=== PATIENT | male | born 1960 | race Caucasian/White ===

== ENCOUNTER → 2021-04-11 | Outpatient (CLI) | payer SELFPAY ==
[~2021-04-11] MED LIST: ISOVUE-370 76% 100ML VIAL As Ordered ONE
--- NOTE | 2021-04-11 12:19 | REPVR ---
PROCEDURE INFORMATION: Exam: CT Neck With Contrast Exam date and time: 04/11/2021 11:40 AM Age: 60 years old Clinical indication: Pain; Other: Lower lip; Additional info: Malig neoplasm lower lip TECHNIQUE: Imaging protocol: Computed tomography images of the neck with contrast. Radiation optimization: All CT scans at this facility use at least one of these dose optimization techniques: automated exposure control; mA and/or kV adjustment per patient size (includes targeted exams where dose is matched to clinical indication); or iterative reconstruction. Contrast material: ISOVUE 370; Contrast volume: 75 ml; Contrast route: INTRAVENOUS (IV); COMPARISON: No relevant prior studies available. FINDINGS: Paranasal sinuses: Mild mucosal thickening of the ethmoidal air cells. Nasopharynx: Unremarkable. Oropharynx: Unremarkable. No significant tonsillar enlargement. Hypopharynx: Unremarkable. Larynx: Unremarkable. Normal epiglottis. Retropharyngeal space: Unremarkable. Submandibular/Parotid glands: Normal. Glands are normal in size. Thyroid: Normal. No enlarged or calcified nodules. Lymph nodes: Prominent bilateral cervical chain lymph nodes measuring upto 1 cm. These are not pathologically enlarged by CT criteria. Trachea: Visualized trachea is unremarkable. Lungs: Unremarkable as visualized. Bones/joints: Posterior disc osteophy formation at C3/C4 causing mild to moderate central spinal canal stenosis. Posterior disc osteophyte formation at C5/C6 causing moderate to severe central spinal canal stenosis. Multilevel mild to moderate neural foraminal narrowing. Degenerative changes. Soft tissues: 14 x 37 x 18 mm soft tissue density in the right lower lip. IMPRESSION: 14 x 37 x 18 mm soft tissue density in the right lower lip consistent with patient's given history of neoplastic process. Prominent bilateral cervical chain lymph nodes measuring upto 1 cm. These are not pathologically enlarged by CT criteria. Electronically signed by: Katy Escamilla On 04/11/2021 12:19:38 PM
== END ==
LOC: M RAD 11:15
PROVIDERS: ATTEND Otolaryngology
DX: C00.1 Malignant neoplasm of external lower lip (principal)
CPT/HCPCS: 70491; Q9967

== ENCOUNTER 2021-05-12 08:15 | Observation (INO) | payer SELFPAY ==
[~2021-05-12] VITALS: Ht 175.3 cm; Wt 79.0 kg
[2021-05-12] VITALS (7 sets, daily range): BP systolic 126–141; BP diastolic 71–88; O2SAT 96
[~2021-05-12 08:15] MED LIST changes: -ISOVUE-370 76% 100ML VIAL As Ordered ONE; +LIDOCAINE 1% MDV 20ML VIAL SQ PRN; +LR 1,000 ML IV ONE; +dexameTHASONE 4 MG/ML 1ML VIAL (J1100 PER 1MG) IV ONE
[2021-05-12] MEDS ORDERED: propofoL 200 MG/20 ML VIAL As Ordered ONE (08:34)
[2021-05-12] MEDS ORDERED: LIDOCAINE 2% 100MG/5ML SDV (FOR ANES.) As Ordered ONE (08:34)
[2021-05-12] MEDS ORDERED: ROCURONIUM BROMIDE 50 MG/5 ML VIAL As Ordered ONE ×2 (08:34→11:46)
[2021-05-12] MEDS ORDERED: ONDANSETRON 4MG/2ML VIAL As Ordered ONE (08:35)
[2021-05-12] MEDS ORDERED: fentaNYL 100 MCG/2 ML INJECTION (J3010) As Ordered ONE (08:35)
[2021-05-12] MEDS ORDERED: dexameTHASONE 4 MG/ML 1ML VIAL (J1100 PER 1MG) As Ordered ONE (08:35)
[2021-05-12] MEDS ORDERED: MIDAZOLAM INJ 2MG/2ML VIAL (J2250 PER 1MG) As Ordered ONE (08:35)
[2021-05-12] MEDS ORDERED: BACITRACIN OINTMENT 30GM TUBE As Ordered ONE (08:54)
[2021-05-12] MEDS ORDERED: LIDOCAINE W/EPINEPHRINE 1% 20ML VIAL As Ordered ONE (08:54)
[2021-05-12] MEDS ORDERED: METHYLENE BLUE 0.5% (5MG/ML) 10 ML AMP (PROVAYBLUE) As Ordered ONE (08:54)
[2021-05-12] MEDS ORDERED: OXYMETAZOLINE 0.05% NASAL SPRAY (AFRIN) As Ordered ONE (09:37)
[2021-05-12] MEDS ORDERED: POVIDONE-IODINE 5% OPHTH PREP SOL 30ML As Ordered ONE (09:39)
[2021-05-12] MEDS ORDERED: ACETAMINOPHEN 1000MG 100ML IV BTL (OFIRMEV) (J0131 PER 10MG) As Ordered ONE (10:18)
[2021-05-12] MEDS ORDERED: SUGAMMADEX SODIUM 500 MG/5 ML VIAL (BRIDION) As Ordered ONE (10:21)
[2021-05-12] MEDS ORDERED: HYDROmorphone HCL 2 MG/ML 1ML VIAL As Ordered ONE (10:22)
[2021-05-12] MEDS ORDERED: MORPHINE 2 MG/ML 1ML VIAL (J2270) IV PRN (13:30)
[2021-05-12] MEDS ORDERED: LR 1,000 ML IV SCH (13:30)
[2021-05-12] MEDS ORDERED: ONDANSETRON 4MG/2ML VIAL IV PRN ×2 (13:30→13:40)
[2021-05-12] MEDS ORDERED: oxyCODONE 5MG TAB PO PRN (13:30)
[2021-05-12] MEDS ORDERED: fentaNYL 100 MCG/2 ML INJECTION (J3010) IV PRN (13:30)
[2021-05-12] MEDS ORDERED: PERCOCET 5MG/325MG TAB PO PRN (13:40)
--- NOTE | 2021-05-12 14:37 | HPEPDOC ---
General Date of Admission 05/12/21 Date of Service: May 12, 2021 Chief Complaint The patient is a 60-year-old male admitted with a reason for visit of Right Lower Lip Carcinoma. Source: Patient Exam Limitations: No limitations History of Present Illness Patient is 60 years old male with past medical history of GERD presented to hospital for elective surgery. Dr. 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 Patient tolerated procedure well. When I saw him his vital signs has been stable. Patient stated that he wants only pain medications and he is [place]. Patient denied fever, chills, nausea vomiting diarrhea dysuria. ENT team recommended to admit him for observation. Home Medications No Active Prescriptions or Reported Meds Allergies Coded Allergies: No Known Allergies (Unverified , 04/30/21) Past Medical History Medical History GERD, sciatica Family History I reviewed family history and found not pertinent Social History * Smoker: Denies Alcohol: Denies Drugs: denies A-FIB/CHADSVASC A-FIB History Current/History of A-Fib/PAF?: No Current PO Anticoag Therapy: No Review of Systems Constitutional: Denies: Chills Eyes: Denies: Pain ENT: Denies: Head Aches Skin: Denies: Rash Pulmonary: Denies: Dyspnea Cardiovascular: Denies: Chest Pain Gastrointestinal: Denies: Nausea Genitourinary: Denies: Dysuria Hematologic: Denies: Bruising Endocrine: Denies: Polydipsia Musculoskeletal: Denies: Neck Pain Neurological: Denies: Weakness Psych: Reports: Mood Normal Physical Examination General Exam: Positive: Cooperative Eye Exam: Positive: PERRLA ENT Exam: Positive: Atraumatic, Other ENT (Status post lower lip mass removal. No visible bleeding) Neck Exam: Positive: Supple Chest Exam: Positive: Clear to auscultation Heart Exam: Positive: Rate Normal Telemetry: Positive: No significant arrhythmia Abdomen Exam: Positive: Normal bowel sounds Extremity Exam: Negative: Clubbing Skin Exam: Positive: Nl turgor and temperature Neuro Exam: Positive: Cranial Nerves 3-12 NL Psych Exam: Positive: Mental status NL Vital Signs Vital Signs Date Time Temp Pulse Resp B/P (MAP) Pulse Ox O2 Delivery O2 Flow Rate FiO2 05/12/21 13:50 75 16 127/76 (93) 98 Room Air 05/12/21 13:40 10.0 05/12/21 13:23 97.1 Assessment/Plan Patient is 60 years old male with past medical history of GERD presented to hospital for elective surgery. Dr. 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 Patient tolerated procedure well. When I saw him his vital signs has been stable. Patient stated that he wants only pain medications and he is [place]. Patient denied fever, chills, nausea vomiting diarrhea dysuria. ENT team recommended to admit him for observation. Problems (1) Surgical defect of lip Status: Acute Problem Text: Status post lower lip surgery presumably for squamous cell carcinoma Await pathology result Pain management per ENT team Plan / VTE VTE Prophylaxis Ordered?: No VTE Exclusion Mechanical Proph: Low Risk for VTE VIRGINIE LEUNG DO May 12, 2021 14:37
[2021-05-12] MEDS: LR 1,000 ML IV SCH ×2 (14:50→18:37)
[2021-05-12] MEDS: CHLORHEXIDINE GLUCONATE 0.12 % 15ML UDC (PERIDEX ORAL RINSE) SSP SCH ×2 (16:00→20:50)
[2021-05-12] MEDS: ACETAMINOPHEN 325 MG TAB PO PRN (16:42)
[2021-05-12] MEDS: BACITRACIN OINTMENT 30GM TUBE TOP SCH ×2 (16:43→20:51)
[2021-05-12] MEDS: dexameTHASONE 4 MG/ML 1ML VIAL (J1100 PER 1MG) IV SCH (18:37)
[2021-05-13 02:00] VITALS: BP 127/67
[2021-05-13] MEDS: dexameTHASONE 4 MG/ML 1ML VIAL (J1100 PER 1MG) IV SCH ×2 (02:12→10:17)
[2021-05-13 06:00] VITALS: BP 107/60
[2021-05-13 08:43] LABS: HEMATOCRIT 39.1 % (42.0-52.0); HEMOGLOBIN 13.2 g/dl (13.5-17.5); MEAN CORPUSCULAR HEMOGLOBIN 30.2 pg (27.0-33.0); MEAN CORPUSCULAR HGB CONC 33.8 g/dl (32.0-36.5); MEAN CORPUSCULAR VOLUME 89.5 fl (80.0-96.0); PLATELET COUNT, AUTOMATED 258 10^3/uL (150-450); RED BLOOD COUNT 4.37 10^6/uL (4.30-6.10); WHITE BLOOD COUNT 17.6 10^3/uL (4.0-10.0)
[2021-05-13 10:00] VITALS: BP 121/71
[2021-05-13] MEDS: CHLORHEXIDINE GLUCONATE 0.12 % 15ML UDC (PERIDEX ORAL RINSE) SSP SCH (10:16)
[2021-05-13] MEDS: BACITRACIN OINTMENT 30GM TUBE TOP SCH (10:17)
[2021-05-13] MEDS: ACETAMINOPHEN 325 MG TAB PO PRN (10:18)
--- NOTE | 2021-05-13 12:05 | RO ---
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 PROCEDURES PERFORMED: 1. 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 2. Lip reconstruction using Karapandzic flap. SURGEON: Dwain rL MD ASSISTANTS: Artemio Meza MD and Ortiz Hopson PA-C ANESTHESIA: General. 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 neck showed no evidence of cervical lymphadenopathy. The size of the tumor measures 5 cm in greatest dimension. Management options including excision and lip reconstruction have been discussed with the patient in great detail. He understood and consented to the procedure. DESCRIPTION OF PROCEDURE: The patient was identified in preop holding and surgery discussed. He provided consent to have this removed as medically and surgically necessary. He was brought to the operating room in stable condition. In the supine position on the operating table, the patient received general anesthesia followed by nasotracheal intubation without incident. The patient was prepped and draped in the usual fashion for the procedure. The humphreys was trimmed due to the medical necessity to afford sterile operative field. The patient was prepped and draped in usual fashion for the procedure. The incision site was outlined around the right lower lip tumor. It measured 6 cm in greatest diameter including margins. The Karapandzic flap was then outlined along bilateral mentolabial folds. The margin of the tumor as well as proposed flap incision sites were then infiltrated with 1% Lidocaine with 1:100,000 Epinephrine. The tumor was then successfully excised en bloc and marked using two suture ends to indicate inferior margin and one suture end to indicate right oral commissure lateral margin. The specimen was sent to pathology for intraoperative frozen section to check the margins of the mucosa as well as the deep margin. At this time the incision was carried along the left and right medial labial fold through the skin, subcutaneous tissue and the underlying musculature. The buccal mucosa was also incised to allow mobilization of the flap on the right and left side of the mentolabial folds. The apex of the folds was then inset along the gingival sulcus. The mucosal incision was then closed using 4-0 Monocryl for the left and right flaps. The muscle layer was reapproximated around the orbicularis levi and facial musculature using the 4-0 Monocryl as well. The vermilion border of the lower lip was then carefully reapproximated with the 4-0 Monocryl as well. The final skin closure was then achieved using the 5-0 Prolene. The intraop frozen section report was called in at this time and was reported that all margins were negative. At the end of procedure sponge and instrument counts were correct. No complications were encountered. Estimated blood loss was approximately 20 mL. Bacitracin was applied to the facial incision site in lip area. General anesthesia was reversed and the patient was extubated and brought to recovery room in stable condition.
[2021-05-13 14:00] VITALS: BP 131/76
[2021-05-13 15:45] LABS: BLOOD UREA NITROGEN 15 MG/DL (7-18); CALCIUM LEVEL 9.5 MG/DL (8.5-10.1); CARBON DIOXIDE LEVEL 24 MEQ/L (21-32); CHLORIDE LEVEL 105 MEQ/L (98-107); CREATININE FOR GFR 1.04 MG/DL (0.70-1.30); GLOMERULAR FILTRATION RATE > 60.0 (>56); GLUCOSE, FASTING 187 MG/DL (70-100); MAGNESIUM LEVEL 1.8 MG/DL (1.8-2.4); PHOSPHORUS LEVEL 3.7 MG/DL (2.5-4.9); POTASSIUM SERUM 3.9 MEQ/L (3.5-5.1); SODIUM LEVEL 139 MEQ/L (136-145)
[2021-05-13] MEDS ORDERED: AUGM875T28 PO (16:18)
[2021-05-13] MEDS ORDERED: ACET650T15 PO (16:18)
[2021-05-13] MEDS ORDERED: PERI12LIQ SSP (16:18)
[2021-05-13] MEDS ORDERED: BACI50OI TOP (16:18)
--- NOTE | 2021-05-13 16:25 | DS.PDOC ---
Discharge Summary General Date of Admission May 12, 2021 at 14:23 Date of Discharge 05/13/21 Discharge Summary DISCHARGE DIAGNOSES: 1. Right lower lip carcinoma concern for squamous cell carcinoma COMPLICATIONS/CHIEF COMPLAINT: Right Lower Lip Carcinoma. HOSPITAL COURSE: Mr. Reed, is a 60-year-old male with past medical history of GERD who presented to the hospital for an elective surgery by the ENT team. An excision of squamous cell carcinoma of the right lower lip of approximately 6 cm in greatest dimension as well as the reconstruction was done by Dr. Lr of ENT on 05/12/2021. On 05/13 he was reevaluated by ENT and deemed stable for discharge. He was noted to have leukocytosis which was considered to be reactive from the steroids that he received by ENT. He was afebrile and there is no clinical concerns of infectious etiology. Patient wanted further work-up as an outpatient. Th erefore he was encouraged to have repeat CBC done with his primary care physician. As per ENT recommendations, he will be discharged on Augmentin for a total of 10 days. He will also be discharged with chlorhexidine oral rinse as well as Bactroban. He is to follow-up with the ENT team within a week. DISCHARGE MEDICATIONS: Please see below. ALLERGIES: Please see below. PHYSICAL EXAMINATION ON DISCHARGE: VITAL SIGNS: Please see below. General: Lying in bed, no acute distress Head/Neck/Throat: Trachea midline, mucous membranes moist. Lower lip stitches appreciated with no erythema or discharge Eyes: Sclera anicteric, no erythema or discharge appreciated bilaterally Thorax: Normal respiratory effort on room air, lungs clear to auscultation bilaterally, no wheezes/rales/rhonchi Cardiovascular: Normal rate, regular rhythm, normal S1, S2; no S3, S4, rubs/gallops/murmurs Abdomen: Bowel sounds present, soft/nontender/nondistended Genitourinary: No CVA tenderness, no Mistry in place Musculoskeletal: Moving all extremities, no edema Skin: Warm, dry Neurologic: AAOx3, speech fluent and goal-directed, no focal deficits, grossly intact LABORATORY DATA: Please see below. IMAGING: None done during this hospitalization PROGNOSIS: Good ACTIVITY: As tolerated DIET: Soft diet until follow-up with ENT DISCHARGE INSTRUCTIONS: 1. Asked patient to have repeat CBC done within 2 to 3 days which can be followed up with his primary care physician in his next visit 2. Follow-up with ENT within a week DISCHARGE CONDITION: Stable TIME SPENT ON DISCHARGE: 30 minutes. Vital Signs/I&Os Vital Signs Date Time Temp Pulse Resp B/P (MAP) Pulse Ox O2 Delivery O2 Flow Rate FiO2 05/13/21 14:00 98.9 85 18 131/76 (94) 97 Room Air 05/12/21 13:40 10.0 I&O- Last 24 Hours up to 6 AM 05/13/21 06:00 Intake Total 3285 ml Output Total 120 ml Balance 3165 ml Laboratory Data Labs 24H Laboratory Tests 2 05/13/21 07:54: Anion Gap 10, Glomerular Filtration Rate > 60.0, Calcium Level 9.5, Phosphorus Level 3.7, Magnesium Level 1.8 05/13/21 07:56: Nucleated Red Blood Cells % (auto) 0.0 CBC/BMP Laboratory Tests 05/13/21 07:54 05/13/21 07:56 Discharge Medications Scheduled Acetaminophen (Acetaminophen ER) 650 Mg Tablet.er, 650 MG PO TID Amoxicillin/Potassium Clav (Augmentin 875-125 Tablet) 1 Each Tablet, 1 TAB PO BID Bacitracin (Bacitracin) 28.4 Gm Oint...g., 0 DOSE TOP TID Chlorhexidine Gluconate (Chlorhexidine Gluconate) 473 Ml Mouthwash, 15 ML SSP TID Allergies Coded Allergies: No Known Allergies (Unverified , 04/30/21) CONNIE MORATAYA M.D. May 13, 2021 16:24
== END 2021-05-13 18:20 | disposition home or self-care (01) ==
LOC: M SDC 08:15 → M MS5PR 14:23
PROVIDERS: ADMIT Internal Medicine; ATTEND Internal Medicine
DX: C44.02 Squamous cell carcinoma of skin of lip (principal); K21.9 Gastro-esophageal reflux disease without esophagitis; D72.829 Elevated white blood cell count, unspecified; Z79.899 Other long term (current) drug therapy
CPT/HCPCS: 36415; 40525; 80048; 83735; 84100; 85027; 88305; 96365; 96366; 96375; 96376; J0131; J0697; J1100; J1170; J2250; J2405; J3010; Q9968

== ENCOUNTER → 2021-05-19 | Outpatient (CLI) | payer SELFPAY ==
[~2021-05-19] MED LIST changes: +ACET650T15 PO; +AUGM875T28 PO; +BACI50OI TOP; -LIDOCAINE 1% MDV 20ML VIAL SQ PRN; -LR 1,000 ML IV ONE; +PERI12LIQ SSP; -dexameTHASONE 4 MG/ML 1ML VIAL (J1100 PER 1MG) IV ONE
[2021-05-19 11:22] LABS: BASO # 0.1 10^3/uL (0.0-0.2); BASO % 0.4 % (0.0-1.0); EOS # 1.6 10^3/uL (0.0-0.5); EOS % 12.8 % (0.0-3.0); HEMATOCRIT 44.5 % (42.0-52.0); HEMOGLOBIN 14.9 g/dl (13.5-17.5); LYMPH # 2.5 10^3/uL (1.5-5.0); LYMPH % 20.1 % (24.0-44.0); MEAN CORPUSCULAR HEMOGLOBIN 30.3 pg (27.0-33.0); MEAN CORPUSCULAR HGB CONC 33.5 g/dl (32.0-36.5); MEAN CORPUSCULAR VOLUME 90.6 fl (80.0-96.0); MONO % 8.2 % (2.0-8.0); NEUTROPHILS # 7.2 10^3/uL (1.5-8.5); NEUTROPHILS % 58.1 % (36.0-66.0); PLATELET COUNT, AUTOMATED 259 10^3/uL (150-450); RED BLOOD COUNT 4.91 10^6/uL (4.30-6.10); WHITE BLOOD COUNT 12.4 10^3/uL (4.0-10.0)
== END ==
LOC: M LAB 10:22
PROVIDERS: ATTEND Physician Assistant Medical
DX: C00.1 Malignant neoplasm of external lower lip (principal)